=== PATIENT | male | born 1940 | race Caucasian/White ===

== ENCOUNTER 2020-06-07 14:06 | Inpatient (IN) ==
[2020-06-07] MEDS ORDERED: Saline Nasal Spray 44 ML BOTTLE NS PRN (15:30)
[2020-06-07] MEDS ORDERED: Nitroglycerin 0.4 MG TAB.SUBL SL PRN (15:30)
[2020-06-07] MEDS ORDERED: Insulin DETEMIR 100 UNIT/ML per UNIT SUBQ ONE (21:30)
[2020-06-07] MEDS: GlipiZIDE 5 MG TABLET PO SCH (21:51)
[2020-06-07] MEDS: Insulin DETEMIR 100 UNIT/ML per UNIT SUBQ ONE ×2 (21:53→23:51)
[2020-06-07] MEDS: Apixaban 5 MG TABLET PO SCH (22:10)
[2020-06-07] MEDS: Melatonin 3 MG TABLET PO PRN (22:10)
[2020-06-08 06:05] LABS: BUN/Creatinine Ratio 14 (6-26); Blood Urea Nitrogen 12 mg/dL (8-23); Calcium 8.8 mg/dL (8.6-10.3); Carbon Dioxide 33 mEq/L (23-29); Chloride 99 mEq/L (98-107); Glucose 81 mg/dL (70-105); Osmolality,Calculated 283 (280-300); Potassium 3.2 mEq/L (3.5-5.1); Sodium 137 mEq/L (136-145); eGFR For African Americans > 60 (> 60); eGFR For Non-African Americans > 60 (> 60)
[2020-06-08] MEDS: Loratadine 10 MG TABLET PO SCH (08:11)
[2020-06-08] MEDS: GlipiZIDE 5 MG TABLET PO SCH ×2 (08:11→16:34)
[2020-06-08] MEDS: Metoprolol XL (24 HR) Succ 25 MG TAB.ER.24H PO SCH (08:11)
[2020-06-08] MEDS: Aspirin Enteric Coated 81 MG Tablet PO SCH (08:11)
[2020-06-08] MEDS: predniSONE 5 MG TABLET PO SCH (08:11)
[2020-06-08] MEDS: amLODIPine 5 MG TABLET PO SCH (08:12)
[2020-06-08] MEDS: Apixaban 5 MG TABLET PO SCH ×2 (08:12→21:11)
[2020-06-08] MEDS: Furosemide 20 MG TABLET PO SCH (08:12)
[2020-06-08] MEDS: Empagliflozin [Jardiance] 10 MG PO SCH (08:12)
[2020-06-08] MEDS: Insulin DETEMIR 100 UNIT/ML X5UNITS SUBQ SCH ×2 (08:13→21:14)
[2020-06-08] MEDS: lisinopriL 10 MG TABLET PO SCH (08:13)
[2020-06-08] MEDS: Melatonin 3 MG TABLET PO PRN (21:11)
[2020-06-08] MEDS: *HR* OxyCODONE/APAP 5/325 TABLET PO PRN (21:12)
[2020-06-09 05:11] LABS: Basophils # 0.1 K/mcL (0.0-0.2); Basophils % 0.7 %; Eosinophils # 0.4 K/mcL (0.0-0.6); Eosinophils % 5.8 %; Hematocrit 32.4 % (37.5-50.1); Hemoglobin 11.1 g/dL (12.9-16.9); Immature Granulocytes % 0.3 % (0-4); Lymphocytes # 2.4 K/mcL (0.6-4.6); Lymphocytes % 32.7 %; Mean Corpuscular HGB Conc 34.3 g/dL (31.6-35.5); Mean Corpuscular Hemoglobin 31.9 pg (28.0-33.3); Mean Corpuscular Volume 93.1 fL (83.0-100.0); Mean Platelet Volume 10.4 fL (9.4-12.4); Monocytes # 0.7 K/mcL (0.0-1.3); Monocytes % 9.4 %; Neutrophils # 3.7 K/mcL (1.6-8.9); Platelet Count 210 K/mcL (140-400); Red Blood Count 3.48 M/mcL (4.19-5.50); Red Cell Distribution Width 13.2 % (11.5-14.5); Segmented Neutrophils % 51.1 %; White Blood Count 7.3 K/mcL (4.3-11.1)
[2020-06-09 05:27] LABS: BUN/Creatinine Ratio 14 (6-26); Blood Urea Nitrogen 14 mg/dL (8-23); Calcium 8.8 mg/dL (8.6-10.3); Carbon Dioxide 33 mEq/L (23-29); Chloride 102 mEq/L (98-107); Glucose 75 mg/dL (70-105); Osmolality,Calculated 291 (280-300); Potassium 3.7 mEq/L (3.5-5.1); Sodium 141 mEq/L (136-145); eGFR For African Americans > 60 (> 60); eGFR For Non-African Americans > 60 (> 60)
[2020-06-09] MEDS: predniSONE 5 MG TABLET PO SCH (08:00)
[2020-06-09] MEDS: Aspirin Enteric Coated 81 MG Tablet PO SCH (08:00)
[2020-06-09] MEDS: GlipiZIDE 5 MG TABLET PO SCH ×2 (08:00→17:24)
[2020-06-09] MEDS: Apixaban 5 MG TABLET PO SCH ×2 (08:00→20:57)
[2020-06-09] MEDS: Empagliflozin [Jardiance] 10 MG PO SCH (08:01)
[2020-06-09] MEDS: lisinopriL 10 MG TABLET PO SCH (08:01)
[2020-06-09] MEDS: Loratadine 10 MG TABLET PO SCH (08:01)
[2020-06-09] MEDS: Furosemide 20 MG TABLET PO SCH (08:01)
[2020-06-09] MEDS: Insulin DETEMIR 100 UNIT/ML X5UNITS SUBQ SCH ×2 (08:01→20:59)
[2020-06-09] MEDS: amLODIPine 5 MG TABLET PO SCH (08:01)
[2020-06-09] MEDS: Metoprolol XL (24 HR) Succ 25 MG TAB.ER.24H PO SCH (08:01)
[2020-06-09 17:15] LABS: Bilirubin,Urine Negative (Negative); Blood,Urine Trace-intact (Negative); Clarity,Urine Clear (Clear); Color,Urine Yellow (Yellow); Glucose,Urine (UA) 500 mg/dL (Normal); Ketones,Urine Negative (Negative); Leukocyte Esterase,Urine Negative (Negative); Nitrite,Urine Negative (Negative); Protein,Urine Negative (Neg-Trace); Urobilinogen,Urine Normal (Normal)
[2020-06-09 17:16] LABS: RBC,Urine 0-3 per hpf (0-3); WBC,Urine 0-3 per hpf (0-3)
[2020-06-09] MEDS: Melatonin 3 MG TABLET PO PRN (20:58)
[2020-06-09] MEDS: *HR* OxyCODONE/APAP 5/325 TABLET PO PRN (20:58)
[2020-06-10 08:23] LABS: Estimated Average Glucose 209 mg/dl; Hemoglobin A1C 8.9 %
[2020-06-10] MEDS: Apixaban 5 MG TABLET PO SCH ×2 (10:57→19:53)
[2020-06-10] MEDS: Loratadine 10 MG TABLET PO SCH (10:57)
[2020-06-10] MEDS: Aspirin Enteric Coated 81 MG Tablet PO SCH (10:58)
[2020-06-10] MEDS: Cyanocobalamin (B-12) 1,000 MCG TABLET PO SCH (10:58)
[2020-06-10] MEDS: GlipiZIDE 5 MG TABLET PO SCH ×2 (10:59→17:53)
[2020-06-10] MEDS: predniSONE 5 MG TABLET PO SCH (10:59)
[2020-06-10] MEDS: Metoprolol XL (24 HR) Succ 25 MG TAB.ER.24H PO SCH (10:59)
[2020-06-10] MEDS: Empagliflozin [Jardiance] 10 MG PO SCH (10:59)
[2020-06-10] MEDS: Furosemide 20 MG TABLET PO SCH (10:59)
[2020-06-10] MEDS: amLODIPine 5 MG TABLET PO SCH (10:59)
[2020-06-10] MEDS: lisinopriL 10 MG TABLET PO SCH (11:00)
[2020-06-10] MEDS: Insulin DETEMIR 100 UNIT/ML X5UNITS SUBQ SCH ×2 (11:15→19:53)
[2020-06-10] MEDS: HydrOXYzine SYP 10 MG/5 ML UDC PO PRN (19:54)
[2020-06-11] MEDS: lisinopriL 10 MG TABLET PO SCH (09:08)
[2020-06-11] MEDS: Aspirin Enteric Coated 81 MG Tablet PO SCH (09:08)
[2020-06-11] MEDS: Loratadine 10 MG TABLET PO SCH (09:08)
[2020-06-11] MEDS: Metoprolol XL (24 HR) Succ 25 MG TAB.ER.24H PO SCH (09:08)
[2020-06-11] MEDS: Apixaban 5 MG TABLET PO SCH ×2 (09:08→20:17)
[2020-06-11] MEDS: predniSONE 5 MG TABLET PO SCH (09:09)
[2020-06-11] MEDS: Furosemide 20 MG TABLET PO SCH (09:09)
[2020-06-11] MEDS: Empagliflozin [Jardiance] 10 MG PO SCH (09:09)
[2020-06-11] MEDS: GlipiZIDE 5 MG TABLET PO SCH ×2 (09:09→17:20)
[2020-06-11] MEDS: amLODIPine 5 MG TABLET PO SCH (09:09)
[2020-06-11] MEDS: Insulin DETEMIR 100 UNIT/ML X5UNITS SUBQ SCH (09:11)
[2020-06-11] MEDS ORDERED: *HR* Dextrose 50 % in Water (Vial) 50 ML VIAL IVP PRN (12:55)
[2020-06-11] MEDS ORDERED: Dextrose Gel 15 GM/37.5 ML TUBE PO PRN ×2 (12:55)
[2020-06-11] MEDS ORDERED: D5% in Water 1,000 ML IVC PRN (12:55)
[2020-06-11] MEDS: Insulin LISPRO 300 UNITS/3 ML VIAL SUBQ SCH (17:21)
[2020-06-11] MEDS: Acetaminophen 325 MG TABLET PO PRN (22:58)
[2020-06-11] MEDS: Melatonin 3 MG TABLET PO PRN (22:58)
[2020-06-12] MEDS: Insulin LISPRO 300 UNITS/3 ML VIAL SUBQ SCH ×3 (09:31→16:36)
[2020-06-12] MEDS: Metoprolol XL (24 HR) Succ 25 MG TAB.ER.24H PO SCH (09:32)
[2020-06-12] MEDS: Aspirin Enteric Coated 81 MG Tablet PO SCH (09:32)
[2020-06-12] MEDS: Apixaban 5 MG TABLET PO SCH ×2 (09:32→20:09)
[2020-06-12] MEDS: Loratadine 10 MG TABLET PO SCH (09:33)
[2020-06-12] MEDS: GlipiZIDE 5 MG TABLET PO SCH ×2 (09:33→16:34)
[2020-06-12] MEDS: lisinopriL 10 MG TABLET PO SCH (09:33)
[2020-06-12] MEDS: Cyanocobalamin (B-12) 1,000 MCG TABLET PO SCH (09:33)
[2020-06-12] MEDS: amLODIPine 5 MG TABLET PO SCH (09:33)
[2020-06-12] MEDS: predniSONE 5 MG TABLET PO SCH (09:34)
[2020-06-12] MEDS: Furosemide 20 MG TABLET PO SCH (09:34)
[2020-06-12] MEDS: (Empagliflozin [Jardiance] 10 MG) PO SCH (13:40)
[2020-06-12] MEDS: Acetaminophen 325 MG TABLET PO PRN ×2 (16:40→22:10)
[2020-06-12] MEDS: Melatonin 3 MG TABLET PO PRN (20:09)
[2020-06-12] MEDS: HydrOXYzine SYP 10 MG/5 ML UDC PO PRN (23:44)
[2020-06-13] MEDS: Insulin LISPRO 300 UNITS/3 ML VIAL SUBQ SCH ×3 (07:51→17:38)
[2020-06-13] MEDS: Apixaban 5 MG TABLET PO SCH ×2 (07:52→20:52)
[2020-06-13] MEDS: Loratadine 10 MG TABLET PO SCH (07:53)
[2020-06-13] MEDS: Metoprolol XL (24 HR) Succ 25 MG TAB.ER.24H PO SCH (07:53)
[2020-06-13] MEDS: Aspirin Enteric Coated 81 MG Tablet PO SCH (07:53)
[2020-06-13] MEDS: GlipiZIDE 5 MG TABLET PO SCH ×2 (07:53→17:39)
[2020-06-13] MEDS: Furosemide 20 MG TABLET PO SCH (07:53)
[2020-06-13] MEDS: amLODIPine 5 MG TABLET PO SCH (07:58)
[2020-06-13] MEDS: lisinopriL 10 MG TABLET PO SCH (07:58)
[2020-06-13] MEDS: predniSONE 5 MG TABLET PO SCH (07:58)
[2020-06-13] MEDS: 0.9 % Sodium Chloride 1,000 ML IVC SCH ×2 (10:33→20:56)
[2020-06-13] MEDS: Melatonin 3 MG TABLET PO PRN (20:51)
[2020-06-13] MEDS: QUEtiapine Fumarate 25 MG TABLET PO SCH (20:52)
[2020-06-13] MEDS: Ibuprofen 600 MG TABLET PO PRN (20:52)
[2020-06-14] MEDS: (Empagliflozin [Jardiance] 10 MG) PO SCH ×2 (08:48→09:04)
[2020-06-14] MEDS: Insulin LISPRO 300 UNITS/3 ML VIAL SUBQ SCH ×3 (08:49→16:40)
[2020-06-14] MEDS: GlipiZIDE 5 MG TABLET PO SCH ×2 (09:02→16:40)
[2020-06-14] MEDS: Aspirin Enteric Coated 81 MG Tablet PO SCH (09:02)
[2020-06-14] MEDS: amLODIPine 5 MG TABLET PO SCH (09:02)
[2020-06-14] MEDS: Apixaban 5 MG TABLET PO SCH ×2 (09:03→21:13)
[2020-06-14] MEDS: Cyanocobalamin (B-12) 1,000 MCG TABLET PO SCH (09:03)
[2020-06-14] MEDS: Acetaminophen 325 MG TABLET PO PRN ×2 (09:03→16:41)
[2020-06-14] MEDS: predniSONE 5 MG TABLET PO SCH (09:04)
[2020-06-14] MEDS: lisinopriL 10 MG TABLET PO SCH (09:04)
[2020-06-14] MEDS: Loratadine 10 MG TABLET PO SCH (09:04)
[2020-06-14] MEDS: Metoprolol XL (24 HR) Succ 25 MG TAB.ER.24H PO SCH (09:04)
[2020-06-14] MEDS: QUEtiapine Fumarate 25 MG TABLET PO SCH (21:12)
[2020-06-15] MEDS: Ibuprofen 600 MG TABLET PO PRN (06:10)
[2020-06-15] MEDS: Insulin LISPRO 300 UNITS/3 ML VIAL SUBQ SCH ×3 (08:30→16:41)
[2020-06-15] MEDS: Loratadine 10 MG TABLET PO SCH (09:47)
[2020-06-15] MEDS: Aspirin Enteric Coated 81 MG Tablet PO SCH (09:47)
[2020-06-15] MEDS: GlipiZIDE 5 MG TABLET PO SCH ×2 (09:47→17:08)
[2020-06-15] MEDS: lisinopriL 10 MG TABLET PO SCH (09:48)
[2020-06-15] MEDS: amLODIPine 5 MG TABLET PO SCH (09:48)
[2020-06-15] MEDS: Apixaban 5 MG TABLET PO SCH ×2 (09:48→20:16)
[2020-06-15] MEDS: Metoprolol XL (24 HR) Succ 25 MG TAB.ER.24H PO SCH (09:48)
[2020-06-15] MEDS: (Empagliflozin [Jardiance] 10 MG) PO SCH (09:49)
[2020-06-15] MEDS: predniSONE 5 MG TABLET PO SCH (09:49)
[2020-06-15] MEDS: Melatonin 3 MG TABLET PO PRN (20:16)
[2020-06-15] MEDS: QUEtiapine Fumarate 25 MG TABLET PO SCH (20:16)
[2020-06-15] MEDS: HydrOXYzine SYP 10 MG/5 ML UDC PO PRN (20:17)
[2020-06-16 05:42] LABS: Hematocrit 32.4 % (37.5-50.1); Mean Corpuscular Hemoglobin 32.3 pg (28.0-33.3); Mean Platelet Volume 10.3 fL (9.4-12.4); Platelet Count 174 K/mcL (140-400); Red Blood Count 3.41 M/mcL (4.19-5.50); Red Cell Distribution Width 13.6 % (11.5-14.5); White Blood Count 6.4 K/mcL (4.3-11.1)
[2020-06-16 05:55] LABS: Alanine Aminotransferase 13 Units/L (7-52); Albumin 3.3 g/dL (3.5-5.7); Albumin/Globulin Ratio 1.1 (1.1-2.2); Alkaline Phosphatase 77 Units/L (34-104); Aspartate Amino Transferase 18 Units/L (13-39); BUN/Creatinine Ratio 13 (6-26); Bilirubin,Total 0.4 mg/dL (0.3-1.0); Blood Urea Nitrogen 13 mg/dL (8-23); Calcium 8.7 mg/dL (8.6-10.3); Carbon Dioxide 27 mEq/L (23-29); Chloride 102 mEq/L (98-107); Globulin 2.9 g/dL (2.4-3.5); Glucose 112 mg/dL (70-105); Magnesium 1.5 mg/dL (1.6-2.6); Osmolality,Calculated 283 (280-300); Sodium 136 mEq/L (136-145); Total Protein 6.2 g/dL (6.4-8.9); eGFR For African Americans > 60 (> 60); eGFR For Non-African Americans > 60 (> 60)
[2020-06-16] MEDS: Insulin LISPRO 300 UNITS/3 ML VIAL SUBQ SCH ×3 (09:12→16:24)
[2020-06-16] MEDS: Aspirin Enteric Coated 81 MG Tablet PO SCH (09:19)
[2020-06-16] MEDS: lisinopriL 10 MG TABLET PO SCH (09:19)
[2020-06-16] MEDS: Apixaban 5 MG TABLET PO SCH ×2 (09:20→21:32)
[2020-06-16] MEDS: GlipiZIDE 5 MG TABLET PO SCH ×2 (09:20→16:25)
[2020-06-16] MEDS: Loratadine 10 MG TABLET PO SCH (09:21)
[2020-06-16] MEDS: predniSONE 5 MG TABLET PO SCH (09:21)
[2020-06-16] MEDS: amLODIPine 5 MG TABLET PO SCH (09:21)
[2020-06-16] MEDS: (Empagliflozin [Jardiance] 10 MG) PO SCH (09:21)
[2020-06-16] MEDS: Metoprolol XL (24 HR) Succ 25 MG TAB.ER.24H PO SCH (09:22)
[2020-06-16] MEDS: Ibuprofen 600 MG TABLET PO PRN (09:24)
[2020-06-16 11:34] LABS: Bilirubin,Urine Negative (Negative); Blood,Urine Trace-intact (Negative); Clarity,Urine Clear (Clear); Color,Urine Yellow (Yellow); Glucose,Urine (UA) 500 mg/dL (Normal); Ketones,Urine 15 mg/dL (Negative); Leukocyte Esterase,Urine Negative (Negative); Nitrite,Urine Negative (Negative); Protein,Urine 30 mg/dL (Neg-Trace); Urobilinogen,Urine Normal (Normal)
[2020-06-16 11:39] LABS: RBC,Urine 0-3 per hpf (0-3); WBC,Urine 0-3 per hpf (0-3)
[2020-06-16] MEDS: QUEtiapine Fumarate 25 MG TABLET PO SCH (21:31)
[2020-06-17] MEDS: Insulin LISPRO 300 UNITS/3 ML VIAL SUBQ SCH ×3 (07:32→16:57)
[2020-06-17] MEDS: Aspirin Enteric Coated 81 MG Tablet PO SCH (08:54)
[2020-06-17] MEDS: Apixaban 5 MG TABLET PO SCH ×2 (08:54→20:06)
[2020-06-17] MEDS: lisinopriL 10 MG TABLET PO SCH (08:54)
[2020-06-17] MEDS: amLODIPine 5 MG TABLET PO SCH (08:55)
[2020-06-17] MEDS: Metoprolol XL (24 HR) Succ 25 MG TAB.ER.24H PO SCH (08:55)
[2020-06-17] MEDS: predniSONE 5 MG TABLET PO SCH (08:56)
[2020-06-17] MEDS: Loratadine 10 MG TABLET PO SCH (08:56)
[2020-06-17] MEDS: GlipiZIDE 5 MG TABLET PO SCH ×2 (08:56→16:58)
[2020-06-17] MEDS: Cyanocobalamin (B-12) 1,000 MCG TABLET PO SCH (08:56)
[2020-06-17] MEDS: (Empagliflozin [Jardiance] 10 MG) PO SCH (08:57)
[2020-06-17] MEDS: Melatonin 3 MG TABLET PO PRN (20:06)
[2020-06-17] MEDS: QUEtiapine Fumarate 25 MG TABLET PO SCH (20:06)
[2020-06-17] MEDS: HydrOXYzine SYP 10 MG/5 ML UDC PO PRN (20:11)
[2020-06-18] MEDS: Insulin LISPRO 300 UNITS/3 ML VIAL SUBQ SCH ×4 (07:49→16:33)
[2020-06-18] MEDS: amLODIPine 5 MG TABLET PO SCH (09:26)
[2020-06-18] MEDS: Metoprolol XL (24 HR) Succ 25 MG TAB.ER.24H PO SCH (09:27)
[2020-06-18] MEDS: lisinopriL 10 MG TABLET PO SCH (09:27)
[2020-06-18] MEDS: Apixaban 5 MG TABLET PO SCH ×2 (09:29→19:06)
[2020-06-18] MEDS: GlipiZIDE 5 MG TABLET PO SCH ×2 (09:29→17:15)
[2020-06-18] MEDS: Loratadine 10 MG TABLET PO SCH (09:29)
[2020-06-18] MEDS: (Empagliflozin [Jardiance] 10 MG) PO SCH (09:30)
[2020-06-18] MEDS: predniSONE 5 MG TABLET PO SCH (09:30)
[2020-06-18] MEDS: Aspirin Enteric Coated 81 MG Tablet PO SCH (09:31)
[2020-06-18] MEDS: Melatonin 3 MG TABLET PO PRN (19:05)
[2020-06-18] MEDS: QUEtiapine Fumarate 25 MG TABLET PO SCH (19:05)
[2020-06-18] MEDS: HydrOXYzine SYP 10 MG/5 ML UDC PO PRN (19:06)
[2020-06-19] MEDS: Insulin LISPRO 300 UNITS/3 ML VIAL SUBQ SCH ×3 (09:31→17:06)
[2020-06-19] MEDS: Metoprolol XL (24 HR) Succ 25 MG TAB.ER.24H PO SCH (09:32)
[2020-06-19] MEDS: amLODIPine 5 MG TABLET PO SCH (09:32)
[2020-06-19] MEDS: lisinopriL 10 MG TABLET PO SCH (09:32)
[2020-06-19 09:50] LABS: Basophils % 0.2 %; Eosinophils % 0.2 %; Hematocrit 33.5 % (37.5-50.1); Hemoglobin 11.3 g/dL (12.9-16.9); Immature Granulocytes % 0.2 % (0-4); Lymphocytes # 1.4 K/mcL (0.6-4.6); Lymphocytes % 31.4 %; Mean Corpuscular HGB Conc 33.7 g/dL (31.6-35.5); Mean Corpuscular Hemoglobin 31.6 pg (28.0-33.3); Mean Corpuscular Volume 93.6 fL (83.0-100.0); Mean Platelet Volume 10.9 fL (9.4-12.4); Monocytes # 0.4 K/mcL (0.0-1.3); Monocytes % 9.1 %; Neutrophils # 2.5 K/mcL (1.6-8.9); Platelet Count 161 K/mcL (140-400); Red Blood Count 3.58 M/mcL (4.19-5.50); Red Cell Distribution Width 13.6 % (11.5-14.5); Segmented Neutrophils % 58.9 %; White Blood Count 4.3 K/mcL (4.3-11.1)
[2020-06-19 09:52] LABS: Bilirubin,Urine Negative (Negative); Blood,Urine Trace-intact (Negative); Clarity,Urine Clear (Clear); Color,Urine Yellow (Yellow); Glucose,Urine (UA) 500 mg/dL (Normal); Ketones,Urine Negative (Negative); Leukocyte Esterase,Urine Negative (Negative); Nitrite,Urine Negative (Negative); Protein,Urine 100 mg/dL (Neg-Trace); Specific Gravity,Urine 1.025 (1.010-1.025); Urobilinogen,Urine Normal (Normal)
[2020-06-19 09:56] LABS: BUN/Creatinine Ratio 16 (6-26); Blood Urea Nitrogen 19 mg/dL (8-23); Calcium 8.3 mg/dL (8.6-10.3); Carbon Dioxide 26 mEq/L (23-29); Chloride 99 mEq/L (98-107); Glucose 69 mg/dL (70-105); Osmolality,Calculated 281 (280-300); Potassium 3.6 mEq/L (3.5-5.1); Sodium 135 mEq/L (136-145); eGFR For African Americans > 60 (> 60); eGFR For Non-African Americans 59 (> 60)
[2020-06-19 10:00] LABS: RBC,Urine 0-3 per hpf (0-3); WBC,Urine 0-3 per hpf (0-3)
[2020-06-19] MEDS: GlipiZIDE 5 MG TABLET PO SCH ×2 (10:03→17:09)
[2020-06-19] MEDS: (Empagliflozin [Jardiance] 10 MG) PO SCH (11:10)
[2020-06-19] MEDS: Aspirin Enteric Coated 81 MG Tablet PO SCH (11:12)
[2020-06-19] MEDS: Apixaban 5 MG TABLET PO SCH ×2 (11:13→20:27)
[2020-06-19] MEDS: Loratadine 10 MG TABLET PO SCH (11:13)
[2020-06-19] MEDS: predniSONE 5 MG TABLET PO SCH (11:13)
[2020-06-19] MEDS: Cyanocobalamin (B-12) 1,000 MCG TABLET PO SCH (11:14)
[2020-06-19] MEDS: Doxycycline 100 MG CAPSULE PO SCH ×2 (12:18→20:27)
[2020-06-19] MEDS ORDERED: Bisacodyl 10 MG RECTAL SUPPOSITORY RC ONE (17:14)
[2020-06-19] MEDS: dexAMETHasone 4 MG TABLET PO SCH (17:27)
[2020-06-19] MEDS: QUEtiapine Fumarate 25 MG TABLET PO SCH (20:27)
[2020-06-20] MEDS: GlipiZIDE 5 MG TABLET PO SCH ×2 (08:31→16:32)
[2020-06-20] MEDS: amLODIPine 5 MG TABLET PO SCH (08:31)
[2020-06-20] MEDS: Doxycycline 100 MG CAPSULE PO SCH ×2 (08:31→21:52)
[2020-06-20] MEDS: Loratadine 10 MG TABLET PO SCH (08:31)
[2020-06-20] MEDS: dexAMETHasone 4 MG TABLET PO SCH (08:31)
[2020-06-20] MEDS: lisinopriL 10 MG TABLET PO SCH (08:32)
[2020-06-20] MEDS: Metoprolol XL (24 HR) Succ 25 MG TAB.ER.24H PO SCH (08:32)
[2020-06-20] MEDS: Apixaban 5 MG TABLET PO SCH ×2 (08:32→21:52)
[2020-06-20] MEDS: Aspirin Enteric Coated 81 MG Tablet PO SCH (08:32)
[2020-06-20] MEDS: (Empagliflozin [Jardiance] 10 MG) PO SCH (08:38)
[2020-06-20] MEDS: Insulin LISPRO 300 UNITS/3 ML VIAL SUBQ SCH ×3 (08:38→16:32)
[2020-06-20] MEDS ORDERED: Bisacodyl 10 MG RECTAL SUPPOSITORY RC ONE (17:10)
[2020-06-20] MEDS: QUEtiapine Fumarate 25 MG TABLET PO SCH (21:52)
[2020-06-21 06:21] LABS: Hematocrit 32.1 % (37.5-50.1); Hemoglobin 11.1 g/dL (12.9-16.9); Mean Corpuscular HGB Conc 34.6 g/dL (31.6-35.5); Mean Corpuscular Hemoglobin 31.4 pg (28.0-33.3); Mean Corpuscular Volume 90.9 fL (83.0-100.0); Mean Platelet Volume 10.9 fL (9.4-12.4); Platelet Count 176 K/mcL (140-400); Red Blood Count 3.53 M/mcL (4.19-5.50); Red Cell Distribution Width 13.2 % (11.5-14.5); White Blood Count 8.4 K/mcL (4.3-11.1)
[2020-06-21 06:44] LABS: Alanine Aminotransferase 18 Units/L (7-52); Alkaline Phosphatase 54 Units/L (34-104); Aspartate Amino Transferase 34 Units/L (13-39); BUN/Creatinine Ratio 36 (6-26); Blood Urea Nitrogen 35 mg/dL (8-23); Calcium 8.2 mg/dL (8.6-10.3); Carbon Dioxide 25 mEq/L (23-29); Chloride 97 mEq/L (98-107); Globulin 2.9 g/dL (2.4-3.5); Glucose 155 mg/dL (70-105); Magnesium 1.7 mg/dL (1.6-2.6); Osmolality,Calculated 283 (280-300); Potassium 3.6 mEq/L (3.5-5.1); Sodium 131 mEq/L (136-145); Total Protein 5.9 g/dL (6.4-8.9); eGFR For African Americans > 60 (> 60); eGFR For Non-African Americans > 60 (> 60)
[2020-06-21 07:03] LABS: Bilirubin,Total 0.5 mg/dL (0.3-1.0)
[2020-06-21] MEDS: Insulin LISPRO 300 UNITS/3 ML VIAL SUBQ SCH ×3 (07:35→17:00)
[2020-06-21 08:50] LABS: Ferritin 1208 ng/mL (20-250)
[2020-06-21] MEDS: dexAMETHasone 4 MG TABLET PO SCH (10:02)
[2020-06-21] MEDS: Metoprolol XL (24 HR) Succ 25 MG TAB.ER.24H PO SCH (10:03)
[2020-06-21] MEDS: GlipiZIDE 5 MG TABLET PO SCH ×2 (10:03→17:00)
[2020-06-21] MEDS: Doxycycline 100 MG CAPSULE PO SCH ×3 (10:03→22:56)
[2020-06-21] MEDS: Apixaban 5 MG TABLET PO SCH ×3 (10:03→22:56)
[2020-06-21] MEDS: Aspirin Enteric Coated 81 MG Tablet PO SCH (10:03)
[2020-06-21] MEDS: Cyanocobalamin (B-12) 1,000 MCG TABLET PO SCH (10:03)
[2020-06-21] MEDS: lisinopriL 10 MG TABLET PO SCH (10:03)
[2020-06-21] MEDS: amLODIPine 5 MG TABLET PO SCH (10:03)
[2020-06-21] MEDS: (Empagliflozin [Jardiance] 10 MG) PO SCH (10:04)
[2020-06-21] MEDS: Loratadine 10 MG TABLET PO SCH (10:05)
[2020-06-21 10:13] LABS: C-Reactive Protein 49 mg/L (Less than 10)
[2020-06-21] MEDS: *HR* LORazepam 0.5 MG TABLET PO PRN ×2 (14:37→20:41)
[2020-06-21] MEDS: QUEtiapine Fumarate 25 MG TABLET PO SCH ×2 (20:41→22:57)
[2020-06-22] MEDS: Insulin LISPRO 300 UNITS/3 ML VIAL SUBQ SCH ×3 (08:11→18:43)
[2020-06-22] MEDS: dexAMETHasone 4 MG TABLET PO SCH (13:18)
[2020-06-22] MEDS: Loratadine 10 MG TABLET PO SCH (13:18)
[2020-06-22] MEDS: lisinopriL 10 MG TABLET PO SCH (13:18)
[2020-06-22] MEDS: Acetaminophen 325 MG TABLET PO PRN (13:19)
[2020-06-22] MEDS: GlipiZIDE 5 MG TABLET PO SCH (13:21)
[2020-06-22] MEDS: Apixaban 5 MG TABLET PO SCH ×2 (13:21→19:57)
[2020-06-22] MEDS: Aspirin Enteric Coated 81 MG Tablet PO SCH (13:21)
[2020-06-22] MEDS: Doxycycline 100 MG CAPSULE PO SCH ×2 (13:21→19:58)
[2020-06-22] MEDS: (Empagliflozin [Jardiance] 10 MG) PO SCH (13:22)
[2020-06-22] MEDS: Metoprolol XL (24 HR) Succ 25 MG TAB.ER.24H PO SCH (13:22)
[2020-06-22] MEDS: amLODIPine 5 MG TABLET PO SCH (13:22)
[2020-06-22] MEDS: 0.9 % Sodium Chloride 1,000 ML IVC SCH (15:20)
[2020-06-22 16:04] LABS: Hematocrit 34.6 % (37.5-50.1); Hemoglobin 11.9 g/dL (12.9-16.9); Mean Corpuscular HGB Conc 34.4 g/dL (31.6-35.5); Mean Corpuscular Hemoglobin 31.4 pg (28.0-33.3); Mean Corpuscular Volume 91.3 fL (83.0-100.0); Mean Platelet Volume 10.9 fL (9.4-12.4); Platelet Count 176 K/mcL (140-400); Red Blood Count 3.79 M/mcL (4.19-5.50); Red Cell Distribution Width 13.5 % (11.5-14.5); White Blood Count 8.3 K/mcL (4.3-11.1)
[2020-06-22 16:27] LABS: Alanine Aminotransferase 20 Units/L (7-52); Albumin/Globulin Ratio 0.9 (1.1-2.2); Alkaline Phosphatase 55 Units/L (34-104); Aspartate Amino Transferase 36 Units/L (13-39); BUN/Creatinine Ratio 27 (6-26); Bilirubin,Total 0.6 mg/dL (0.3-1.0); Blood Urea Nitrogen 26 mg/dL (8-23); Calcium 8.6 mg/dL (8.6-10.3); Carbon Dioxide 25 mEq/L (23-29); Chloride 100 mEq/L (98-107); Globulin 3.2 g/dL (2.4-3.5); Glucose 165 mg/dL (70-105); Magnesium 1.8 mg/dL (1.6-2.6); Osmolality,Calculated 286 (280-300); Potassium 3.6 mEq/L (3.5-5.1); Sodium 134 mEq/L (136-145); Total Protein 6.2 g/dL (6.4-8.9); eGFR For African Americans > 60 (> 60); eGFR For Non-African Americans > 60 (> 60)
[2020-06-22] MEDS: QUEtiapine Fumarate 25 MG TABLET PO SCH (19:57)
[2020-06-22] MEDS: *HR* LORazepam 0.5 MG TABLET PO PRN (19:57)
[2020-06-22 20:21] LABS: Bilirubin,Urine Small (Negative); Blood,Urine Negative (Negative); Clarity,Urine Clear (Clear); Color,Urine Yellow (Yellow); Glucose,Urine (UA) 250 mg/dL (Normal); Ketones,Urine 40 mg/dL (Negative); Leukocyte Esterase,Urine Negative (Negative); Nitrite,Urine Negative (Negative); PH,Urine 6.5 pH Units (5.0-8.0); Protein,Urine 100 mg/dL (Neg-Trace); Urobilinogen,Urine Normal (Normal)
[2020-06-22 20:28] LABS: Bacteria,Urine Moderate per hpf (None-Few); RBC,Urine 0-3 per hpf (0-3); Squamous Epithelial Cell,Urine Few per hpf (None-Few); WBC,Urine 0-3 per hpf (0-3)
[2020-06-23] MEDS: 0.9 % Sodium Chloride 1,000 ML IVC SCH (01:51)
[2020-06-23 05:44] LABS: Hematocrit 33.5 % (37.5-50.1); Hemoglobin 11.2 g/dL (12.9-16.9); Mean Corpuscular HGB Conc 33.4 g/dL (31.6-35.5); Mean Corpuscular Hemoglobin 31.1 pg (28.0-33.3); Mean Corpuscular Volume 93.1 fL (83.0-100.0); Mean Platelet Volume 10.8 fL (9.4-12.4); Platelet Count 154 K/mcL (140-400); Red Cell Distribution Width 13.3 % (11.5-14.5); White Blood Count 3.7 K/mcL (4.3-11.1)
[2020-06-23 05:54] LABS: Alanine Aminotransferase 17 Units/L (7-52); Albumin 2.7 g/dL (3.5-5.7); Albumin/Globulin Ratio 0.9 (1.1-2.2); Alkaline Phosphatase 50 Units/L (34-104); Aspartate Amino Transferase 22 Units/L (13-39); BUN/Creatinine Ratio 34 (6-26); Bilirubin,Total 0.5 mg/dL (0.3-1.0); Blood Urea Nitrogen 31 mg/dL (8-23); Calcium 8.2 mg/dL (8.6-10.3); Carbon Dioxide 25 mEq/L (23-29); Chloride 107 mEq/L (98-107); Globulin 3.1 g/dL (2.4-3.5); Glucose 250 mg/dL (70-105); Osmolality,Calculated 307 (280-300); Potassium 4.2 mEq/L (3.5-5.1); Sodium 141 mEq/L (136-145); Total Protein 5.8 g/dL (6.4-8.9); eGFR For African Americans > 60 (> 60); eGFR For Non-African Americans > 60 (> 60)
[2020-06-23] MEDS: Loratadine 10 MG TABLET PO SCH (12:17)
[2020-06-23] MEDS: Aspirin Enteric Coated 81 MG Tablet PO SCH (12:17)
[2020-06-23] MEDS: Insulin LISPRO 300 UNITS/3 ML VIAL SUBQ SCH ×3 (12:17→22:00)
[2020-06-23] MEDS: Metoprolol XL (24 HR) Succ 25 MG TAB.ER.24H PO SCH (12:18)
[2020-06-23] MEDS: lisinopriL 10 MG TABLET PO SCH (12:18)
[2020-06-23] MEDS: Apixaban 5 MG TABLET PO SCH ×2 (12:18→20:15)
[2020-06-23] MEDS: dexAMETHasone 4 MG TABLET PO SCH (12:18)
[2020-06-23] MEDS: Doxycycline 100 MG CAPSULE PO SCH (12:18)
[2020-06-23] MEDS: amLODIPine 5 MG TABLET PO SCH (12:18)
[2020-06-23] MEDS ORDERED: *HR* LORazepam 0.5 MG TABLET PO PRN (15:35)
[2020-06-23] MEDS ORDERED: Doxycycline 100 MG in 0.9 % Sodium Chloride Mini Bag 100 ML IVPB SCH (18:00)
[2020-06-23 18:12] LABS: C-Reactive Protein 95 mg/L (Less than 10)
[2020-06-23 18:31] LABS: Ferritin 1342 ng/mL (20-250)
[2020-06-23] MEDS: Melatonin 3 MG TABLET PO PRN (20:16)
[2020-06-23] MEDS ORDERED: *HR* LORazepam 2 MG/ML VIAL ONE (21:06)
[2020-06-23 21:43] LABS: ABG Base Excess -10 mEq/L (-2 to 3); ABG HCO3 15 mEq/L (21-27); ABG Oxygen Saturation 97 % (95-98); ABG PCO2 29 mmHg (35-45); ABG PH 7.31 pH Units (7.32-7.45); ABG PO2 94 mmHg (85-104); ABG TCO2 16 mEq/L (20-26)
[2020-06-23 21:47] VITALS: BP 98/66
[2020-06-23] MEDS ORDERED: Dexamethasone Sodium Phos/PF 10 MG/ML VIAL IVP ONE (22:00)
[2020-06-24] MEDS ORDERED: *HR* LORazepam 2 MG/ML VIAL ONE ×2 (01:22→01:59)
[2020-06-24] MEDS ORDERED: Pantoprazole 40 MG VIAL IVP SCH (09:00)
[2020-06-24] MEDS ORDERED: Dexamethasone 4 MG/ML VIAL IVP SCH (09:00)
== END 2020-06-24 02:15 | disposition short-term general hospital (02) | DRG 559 ==
LOC: INPGRE 20:37
PROVIDERS: ADMIT Family Medicine; ATTEND Family Medicine